=== PATIENT | male | born 1965 | race Caucasian/White ===

== ENCOUNTER → 2017-08-12 | Outpatient (CLI) | payer OTHER ==
[~2017-08-12] MED LIST: BACTRIM DS 8001 TAB PO; DOXYCYCLINE 10100 MG PO; DULERA1 AR1 IH; MOTRIN 200200 MG/TAB PO; NORCO 325 MG-51 TAB PO; NORCO 325 MG-7.1 TAB PO; SINGULAIR 110 MG/TAB PO
== END ==
LOC: COL.RAD 09:35
DX: B19.20 Unspecified viral hepatitis C without hepatic coma (principal); K80.20 Calculus of gallbladder without cholecystitis without obstruction; K76.0 Fatty (change of) liver, not elsewhere classified

== ENCOUNTER 2019-08-30 20:46 | Emergency (ER) | payer SELFPAY ==
[~2019-08-30] VITALS: Ht 185.4 cm; Wt 113.6 kg
[2019-08-30 20:58] VITALS: BP 155/86; TEMP 98.8
[2019-08-30 21:30] LABS: BASO % 0.3 % (0.0-2.0); EOS # 0.3 (0.0-0.7); EOS % 2.5 % (0-4.0); GRAN # 9.6 (1.4-6.5); HEMATOCRIT 44.6 % (42.0-52.0); HEMOGLOBIN 15.2 g/dl (13.5-18.0); LYMPH # 1.9 (1.2-3.4); LYMPH % 14.6 % (20.0-51.0); MEAN CELL VOLUME 93 fl (80.0-100.0); MEAN CORPUSCULAR HEMOGLOBIN 32 pg (27.0-31.0); MEAN CORPUSCULAR HGB CONC 34 g/dl (33.0-37.0); MEAN PLATELET VOLUME 10.3 fl (7.4-10.4); MONO % 7.4 % (1.7-9.3); PLATELET COUNT 170 K/mm3 (130-400); RED BLOOD COUNT 4.78 M/mm3 (4.20-5.60); REDCELL DISTRIBUTION WIDTH-CV 13.5 % (11.5-14.5)
[2019-08-30 21:40] LABS: CALCIUM 8.5 mg/dL (8.4-10.2); CREATININE, serum 0.94 (0.66-1.25); POTASSIUM 4.1 mmol/L (3.4-5.0)
[2019-08-30] MEDS ORDERED: PREDNISONE20 MG PO (22:11)
[2019-08-30] MEDS ORDERED: LEVAQUIN 750MG750 M1 PO (22:44)
[2019-08-30] MEDS ORDERED: ALBUTEROL0.83 MG/ML IH (22:47)
[2019-08-30] MEDS ORDERED: NEB MC (22:47)
[2019-08-30 22:55] VITALS: PULSE 82
== END 2019-08-30 22:55 | disposition home or self-care (01) ==
LOC: COL.ER 20:46
PROVIDERS: Physician Assistant
DX: J18.9 Pneumonia, unspecified organism (principal); E11.9 Type 2 diabetes mellitus without complications; I10 Essential (primary) hypertension; J45.909 Unspecified asthma, uncomplicated; F17.210 Nicotine dependence, cigarettes, uncomplicated
CPT/HCPCS: J7512

== ENCOUNTER 2022-08-03 14:03 | Emergency (ER) | payer SELFPAY ==
[~2022-08-03] VITALS: Ht 185.4 cm; Wt 90.9 kg
[~2022-08-03 14:03] MED LIST changes: +ALBUTEROL0.83 MG/ML IH; +LEVAQUIN 750MG750 M1 PO; +NEB MC; +PREDNISONE20 MG PO
[2022-08-03 14:40] LABS: BASO # 0.1 K/mm3 (0.0-0.2); BASO % 0.3 % (0.0-2.0); GRAN # 12.7 K/mm3 (1.4-6.5); GRAN % 87.8 % (42.2-75.2); HEMATOCRIT 38.6 % (42.0-52.0); HEMOGLOBIN 14.2 g/dl (13.5-18.0); LYMPH # 0.5 K/mm3 (1.2-3.4); LYMPH % 3.6 % (20.0-51.0); MEAN CELL VOLUME 84 fl (80.0-100.0); MEAN CORPUSCULAR HEMOGLOBIN 31 pg (27-31); MEAN CORPUSCULAR HGB CONC 37 g/dl (33.0-37.0); MEAN PLATELET VOLUME 11.3 fl (7.4-10.4); MONO # 1.1 K/mm3 (0.1-0.6); MONO % 7.6 % (1.7-9.3); PLATELET COUNT 132 K/mm3 (130-400); RED BLOOD COUNT 4.58 M/mm3 (4.20-5.60); REDCELL DISTRIBUTION WIDTH-CV 12.5 % (11.5-14.5)
[2022-08-03 14:59] LABS: ALANINE AMINOTRANSFERASE 35 U/L (0-55); ALBUMIN 2.8 gm/dL (3.5-5.0); ALCOHOL(ethanol),MEDICAL < 10 mg/dL (0-10); ALKALINE PHOSPHATASE 59 U/L (40-150); ANION GAP 12 mmol/L (7-16); AST,SGOT 52 U/L (5-34); BILIRUBIN,TOTAL 0.9 mg/dL (0.2-1.2); BLOOD UREA NITROGEN 20 mg/dL (8-26); CALCIUM 8.6 mg/dL (8.4-10.2); CARBON DIOXIDE 19 mmol/L (22-29); CHLORIDE 97 mmol/L (98-107); CREATININE, serum 1.37 mg/dL (0.72-1.25); GLUCOSE 162 mg/dL (70-99); POTASSIUM 3.1 mmol/L (3.5-4.5); SODIUM 128 mmol/L (136-145)
[2022-08-03 15:40] LABS: COLLECTION METHOD CLEAN CATCH
[2022-08-03 15:47] LABS: URINE APPEARANCE Cloudy (CLEAR/HAZY); URINE COLOR Amber (YELLOW); URINE GLUCOSE Negative (NEGATIVE); URINE KETONE TRACE (NEGATIVE); URINE PROTEIN(semi-quant) 3+ (NEGATIVE)
[2022-08-03 15:48] LABS: URINE BLOOD 3+ (NEGATIVE); URINE NITRATE Negative (NEGATIVE)
[2022-08-03 15:50] LABS: MUCOUS Present (NOT PRESENT); SQUAMOUS EPITHELIAL 0-2 /hpf (0-10); URINE BACTERIA None Seen /hpf (NONE SEEN); URINE RBC 0-2 /hpf (0-2)
[2022-08-03 15:53] LABS: TRICYCLIC ANTIDEPRESS URINE NEGATIVE
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
[2022-08-03 18:58] VITALS: BP 128/64; PULSE 88; TEMP 100.8
== END 2022-08-03 19:01 | disposition short-term general hospital (02) ==
LOC: COL.ER 14:03
PROVIDERS: Personal Emergency Response Attendant
DX: S12.001A Unspecified nondisplaced fracture of first cervical vertebra, initial encounter for closed fracture (principal); S12.201A Unspecified nondisplaced fracture of third cervical vertebra, initial encounter for closed fracture; S00.81XA Abrasion of other part of head, initial encounter; Z20.822 Contact with and (suspected) exposure to COVID-19; Z28.310 Unvaccinated for COVID-19; V29.9XXA Motorcycle rider (driver) (passenger) injured in unspecified traffic accident, initial encounter; Y92.410 Unspecified street and highway as the place of occurrence of the external cause
CPT/HCPCS: Q9967